=== PATIENT | male | born 1985 | race Caucasian/White ===

== ENCOUNTER 2024-06-30 15:50 | Emergency (ER) | payer MEDICAID, SELFPAY ==
[2024-06-30 16:07] VITALS: BP 151/91; PULSE 87; RESP 18; TEMP 36.3; O2SAT 96; BMI 40.7
--- NOTE | 2024-06-30 16:57 | CRLHL7_ITS ---
For Patients: As a result of the Century Cures Act, medical imaging exams and procedure reports are released immediately into your electronic medical record. You may view this report before your referring provider. If you have questions, please contact your health care provider. INDICATION: Diffuse abdominal pain, worse in the upper abdomen TECHNIQUE: CT Abdomen and pelvis with i.v. contrast. Coronal and sagittal reformats were obtained. CONTRAST: 143 mL Isovue 370 COMPARISON: None FINDINGS: Lower chest: Unremarkable. Liver: Unremarkable. Spleen: Unremarkable. Pancreas: Unremarkable. Gallbladder: Previous cholecystectomy noted with no significant intra- or extrahepatic biliary ductal dilatation seen. Kidney: Unremarkable. No kidney or ureteral stones or obstruction seen. Adrenal: Unremarkable. Bowel: Moderate wall thickening and submucosal fat deposition is present from the cecum to the proximal transverse colon. The appendix is normal in appearance and size. Vascular: Unremarkable. Lymph: Enlarged lymph nodes are present in the ileocolic region and along the right colon measuring up to 11 mm. Peritoneum: Unremarkable. No pneumoperitoneum is seen. No significant ascites is noted. Pelvis: Unremarkable. Soft tissue: Unremarkable. Bone: Unremarkable for age. IMPRESSIONS: 1. Moderate wall thickening and submucosal fat deposition is present from the cecum to the proximal transverse colon. This can be due to chronic inflammation from inflammatory bowel disease, metabolic syndrome, lymphangiectasia, or prior chemotherapy. 2. Enlarged lymph nodes are present in the ileocolic region and along the right colon measuring up to 11 mm. These may be reactive but imaging follow-up is recommended to document stability or resolution. Dictated by Scott Mckeon MD @ 06/30/2024 7:18:34 PM Please note that all CT scans at this facility use dose modulation, iterative reconstruction, and/or weight-based dosing when appropriate to reduce radiation dose to as low as reasonably achievable. Dictated by: Scott Mckeon MD @ 06/30/2024 19:18:59 (Electronically Signed)
--- NOTE | 2024-06-30 17:06 | ED_ITS ---
HPI - Nausea/Vomiting/Diarrhea General Date Seen: 06/30/24 Chief complaint: Diarrhea Stated complaint: Diarrhea, abdominal pain Time Seen by Provider: 06/30/24 16:11 Source: patient Mode of arrival: ambulatory Limitations: no limitations History of Present Illness HPI Narrative: Patient is a 39-year-old male presenting to the emergency department for abdominal discomfort. He states for the past 4 days he has been having nausea, diarrhea and lightheadedness. States he has also been having some upper abdominal cramping that is worse in the upper abdomen but does have discomfort throat his abdomen. Will have occasional hot and cold spells. Has also noticed melena. Has had the symptoms once a month for anywhere from 3-7 days over the past 3 months. States the symptoms seem slightly worse than previously but not too much different. Has been taking ibuprofen for his headache also she states seems to make his abdominal symptoms slightly worse. Has had a previous colonoscopy for GI issues a couple years ago that showed no abnormalities. He does states he has previously been told he could possibly have stomach ulcers. 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 Does state he gets stressed out easily and has recently started a new job. Has not been able see primary care provider because he did not have insurance. Has some mild lower chest pain but denies any shortness of breath. Has state he has been incontinent of stool and has been diarrhea in appearance. He has tried to give a stool culture. Denies any recent travel or camping trips. Symptoms seem to come on randomly during each recurrence of the past few months. Does state he has been having decreased oral intake but has been trying to drink plenty of fluids. Related Data Previous Rx's ?Medication ?Instructions ?Recorded omeprazole 40 mg capsule,delayed 40 mg PO DAILY #30 caps 06/30/24 release ondansetron 4 mg disintegrating 4 mg PO Q6H #20 tabs 06/30/24 tablet Allergies Allergy/AdvReac Type Severity Reaction Status Date / Time No Known Drug Allergies Allergy Verified 06/30/24 18:48 Review of Systems Status of ROS: Reports: 10 or more systems reviewed and unremarkable except as noted in History and below PFSH PFSH Social History Smoking Status: Former smoker What tobacco products do you use: cigarettes Do you use any of these nicotine containing products: Vaping Products How often do you have a drink containing alcohol: never AUDIT-C Alcohol total score: 0 Non-prescribed substance use: denies use Exam Narrative: Exam Narrative: Const: Well-nourished, Well-developed, in mild distress Eyes: PERRL, no conjunctival injection, and symmetrical lids HENT: Atraumatic external nose and ears. Moist mucous membranes. Neck: Symmetric, trachea midline, No thyromegaly. CVS: RRR, No murmurs or gallops. Peripheral pulses 2+ and equal in all extremities RESP: Unlabored respiratory effort. Clear to auscultation bilaterally. GI: Diffuse mild abdominal tenderness worse in the upper abdomen, Nondistended, No rebound or guarding. MSK:Extremities w/o deformity, Normal Active ROM Skin: Warm, Dry. No rashes or lesions. Neuro: Normal Muscle tone, No focal neurological deficits. Psych: Awake, Alert, & Oriented x3. Appropriate mood and affect. Const: Vital Signs, click to edit/add: Vital Signs - 24 hr 06/30/24 16:07 06/30/24 18:26 Temperature 97.3 F L 98.8 F Pulse Rate [Pulse Oximeter] 87 71 Respiratory Rate 18 18 Blood Pressure [Ri t Upper Arm] 151/91 H 138/85 Pulse Oximetry 96 94 Oxygen Delivery Me thod Room Air Room Air Course Vital Signs Vital signs: Initial Vital Signs Temperature 97.3 F L 06/30/24 16:07 Temperature Source Oral 06/30/24 16:07 Pulse Rate 87 06/30/24 16:07 Respiratory Rate 18 06/30/24 16:07 Blood Pressure 151/91 H 06/30/24 16:07 Blood Pressure Mean 111 H 06/30/24 16:07 Pulse Oximetry 96 06/30/24 16:07 Oxygen Delivery Method Room Air 06/30/24 16:07 Vital Signs Temperature 97.3 F L 06/30/24 16:07 Pulse Rate 87 06/30/24 16:07 Respiratory Rate 18 06/30/24 16:07 Blood Pressure 151/91 H 06/30/24 16:07 Pulse Oximetry 96 06/30/24 16:07 Oxygen Delivery Method Room Air 06/30/24 16:07 Temperature 98.8 F 06/30/24 18:26 Pulse Rate 71 06/30/24 18:26 Respiratory Rate 18 06/30/24 18:26 Blood Pressure 138/85 06/30/24 18:26 Pulse Oximetry 94 06/30/24 18:26 Oxygen Delivery Method Room Air 06/30/24 18:26 Medications Administered Medications: Discontinued Medications Generic Name Dose Route Start Last Admin Trade Name Precious PRN Reason Stop Dose Admin Lactated Ringer's 1,000 mls @ 1,000 mls/hr 06/30/24 16:57 06/30/24 18:20 Lactated Ringers 1000 Ml IV 06/30/24 17:56 1,000 mls/hr .Q1H ONE Administration Lidocaine/Aluminum/Magnesium/Simeth 30 ml 06/30/24 16:57 06/30/24 18:18 Gi Cocktail (Visc Lido/Antacid) 30 Ml PO 06/30/24 16:58 30 ml ONCE ONE Administration Ondansetron HCl 4 mg 06/30/24 16:57 06/30/24 18:22 Ondansetron 2 Mg/Ml Inj IVP 06/30/24 16:58 4 mg ONCE ONE Administration MDM - Nausea/Vomiting/Diarrhea MDM Narrative Medical decision making narrative: Patient is a 39-year-old male presenting to the emergency department for abdominal complaints. Differential is quite broad at this time. Differential includes gastroenteritis, colitis, peptic ulcer disease, pancreatitis, gallbladder liver disease. Seems less likely to be appendicitis or diverticulitis. He is also having some mild chest pain that seems more related to his abdominal discomfort by will do an EKG and troponin. My concern for PE is low. Will order a CBC, CMP, COVID/flu/RSV, lipase. Will do CT scan of the abdomen pelvis with contrast. Zofran given for his nausea and given a L of fluids 1st dehydration. Also given a GI cocktail see what helps the symptoms. Patient's lab work returned showing no concerning abnormalities. EKG shows no concerning abnormalities. Was difficulty getting V6 to stay on and just did not get an adequate EKG to evaluate V6. Rest of his EKG looks fine I believe his symptoms are more abdominal related. Considering like the symptoms I do not believe repeat troponin is necessary. He is feeling much better after the GI cocktail and Zofran. Is unsure what helped more. CT scan returned showing some moderate wall thickening and submucosal fat deposition from the cecum to the proximal transverse colon. Differential for this is pretty broad but includes inflammatory bowel disease, metabolic syndrome. Does state he had a normal colonoscopy within the past 2 years. I did inform him he needs to set up primary care to schedule a colonoscopy and possible endoscopy to. I still think it is possible he could be having a peptic ulcer. Patient will be discharged with a a PPI, Zofran. Him is are agreeable to this plan. Lab Data Labs: Lab Results 06/30/24 06/30/24 06/30/24 Range/Units 17:30 17:46 18:00 WBC 8.63 (4.50-11.00) K/uL RBC 5.53 (4.30-5.90) m/uL Hgb 15.5 (13.5-17.5) gm/dL Hct 44.7 (37.0-53.0) % MCV 81 (80-100) fL MCH 28 (26-34) pg MCHC 35 (32-36) gm/dL RDW Coeff of Halle 12.3 (11.5-15.5) % Plt Count 244 (140-440) K/uL Neut % (Auto) 53.9 (42.0-72.0) % Lymph % (Auto) 26.9 (20-44) % Hyde % (Auto) 12.5 H (0.0-11.0) % Eos % (Auto) 5.6 (0.0-7.0) % Baso % (Auto) 0.5 (0.0-3.0) % Neut # (Auto) 4.66 (1.7-7.0) K/uL Lymph # (Auto) 2.32 (0.90-2.90) K/uL Hyde # (Auto) 1.10 H (0.00-0.90) K/UL Eos # (Auto) 0.48 (0.00-0.50) K/uL Baso # (Auto) 0.04 (0.00-0.30) K/uL Abs Immat Gran (auto) 0.05 (0.00-0.30) K/uL Imm/Tot Granulo (auto) 0.6 % Sodium 139 (135-149) mmol/L Potassium 3.5 L (3.6-5.1) mmol/L Chloride 100 (96-114) mmol/L Carbon Dioxide 27 (20-32) mmol/L Anion Gap 12 (7-15) mEq/L BUN 15 (5-24) mg/dL Creatinine 0.7 (0.5-1.5) mg/dL Estimated Creat Clear 152.39 Estimated GFR 121 ml/min Glucose 89 (60-115) mg/dL Calcium 9.7 (8.4-10.6) mg/dL Total Bilirubin 0.6 (0.1-1.5) mg/dL AST 38 H (12-35) U/L ALT 42 (4-50) U/L Alkaline Phosphatase 79 (40-150) U/L Troponin I < 0.01 (0.01-0.04) ng/mL Total Protein 8.1 (6.0-8.3) g/dL Albumin 4.7 (3.3-5.0) g/dL Lipase 81 (23-300) U/L SARS-CoV-2 (PCR) Negative SARS-CoV-2 (Negative) Influenza Type A (PCR) Negative PCR FLU A (Negative) Influenza Type B (PCR) Negative PCR FLU B (Negative) RSV (PCR) Negative PCR RSV (Negative) Imaging Data CT scan abdomen and pelvis: Attestation: I have reviewed the pertinent imaging results. Radiologist's impression: 1. Moderate wall thickening and submucosal fat deposition is present from the cecum to the proximal transverse colon. This can be due to chronic inflammation from inflammatory bowel disease, metabolic syndrome, lymphangiectasia, or prior chemotherapy. 2. Enlarged lymph nodes are present in the ileocolic region and along the right colon measuring up to 11 mm. These may be reactive but imaging follow-up is recommended to document stability or resolution. Dictated by Scott Mckeon MD @ 06/30/2024 7:18:34 PM Please note that all CT scans at this facility use dose modulation, iterative reconstruction, and/or weight-based dosing when appropriate to reduce radiation dose to as low as reasonably achievable. Dictated by: Scott Mckeon MD @ 06/30/2024 19:18:59 ECG Data Attestation: I personally reviewed and interpreted this ECG as follows: Prior ECG tracings: not available for review Interpretation: Normal sinus rhythm with a rate 69 beats per minute, normal intervals, normal axis, no ST or T-wave abnormalities. Did not get adequate lead placement for V6 Discharge Plan Discharge Clinical Impression: Abdominal pain Qualifiers: Abdominal location: unspecified location Qualified Code(s): R10.9 - Unspecified abdominal pain Patient Disposition: Home, Self-Care Condition: Improved Instructions: Peptic Ulcer (ED) Additional Instructions: I believe you may have a peptic ulcer. For this I recommend you stop taking NSAIDs. You can continue take Tylenol. Take the antacid medication as I prescribed along with the Zofran as needed. Is also very important that you set up primary care as soon as you can to set up a outpatient colonoscopy. There is some inflammation seen in your colon. Cannot say exactly where it is at this time while I do believe the colonoscopy would be beneficial for diagnosis. You also may benefit from endoscopy Prescriptions: New ondansetron 4 mg tablet,disintegrating 4 mg PO Q6H Qty: 20 0RF omeprazole 40 mg capsule,delayed release(DR/EC) 40 mg PO DAILY Qty: 30 0RF Follow Up/Referrals: Provider,Not a Local [Primary Care Provider] - Stand Alone Forms: [employer] Info Instructions
--- OUTSIDE RECORDS SUMMARY | 2024-06-30 17:44 | XMS_ITS | Continuity of Care Document ---
Author Organization [facility] Address [address] [place] [address] Care Team Providers Care [employer] Equipment Mechanic Name Role Phone Juan David Sam Unavailable Unavailable Advance Directives Directive Yes / No Effective Date File Name No Information Encounters Encounter Description Practice Location Reason(s) For Visit Diagnoses Date Provider Providers Copied on Encounter [facility] , [address] [place], [place], [phone], [facility] No Information [address] . Family History Family Member Type Diagnosis Age At Onset No Information Payers Payer name Insurance type Covered green party ID Authoriza tion(s) No Information Social History Type Description Quantity Date Captured Comments Sex Male Smoking Status No Information Chief Complaint And Reason For Visit No Information Reason For Referral Reason For Referral No Information History Of Present Illness Encounter Date Complaint History Of Prese nt Illness No Information Functional Status Date Functional Assessmen t No Information Instructions Date Instruction Additional Infor mation No Information Assessments Type Assessment Date No Information Patient Care Teams Name Effective Dates (start - stop) Status Members No Information
[2024-06-30] MEDS: GI COCKTAIL (VISC LIDO/ANTACID) 30 ML PO (18:18)
[2024-06-30] MEDS: LACTATED RINGERS 1000 ML 1,000 ML IV (18:20)
[2024-06-30] MEDS: ONDANSETRON 2 MG/ML inj 4 MG IVP (18:22)
[2024-06-30 18:25] LABS: PCR FLU A Negative PCR FLU A (Negative); PCR FLU B Negative PCR FLU B (Negative); PCR RSV Negative PCR RSV (Negative); SARS PCR* Negative SARS-CoV-2 (Negative)
[2024-06-30 18:26] VITALS: BP 138/85; PULSE 71; RESP 18; TEMP 37.1; O2SAT 94
[2024-06-30 18:31] LABS: Albumin* 4.7 g/dL (3.3-5.0); Chloride* 100 mmol/L (96-114); Potassium* 3.5 mmol/L (3.6-5.1); Sodium* 139 mmol/L (135-149)
[2024-06-30 18:34] LABS: Alanine Aminotransferase* 42 U/L (4-50); Alkaline Phosphatase* 79 U/L (40-150); Anion Gap 12 mEq/L (7-15); Aspartate Amino Transferase* 38 U/L (12-35); Bilirubin Total* 0.6 mg/dL (0.1-1.5); Blood Urea Nitrogen* 15 mg/dL (5-24); Calcium* 9.7 mg/dL (8.4-10.6); Carbon Dioxide* 27 mmol/L (20-32); Creatinine* 0.7 mg/dL (0.5-1.5); Est. Creatinine Clearance* 152.39; Estimated Glomerular Filt Rate 121 ml/min; Glucose* 89 mg/dL (60-115); Lipase* 81 U/L (23-300); Total Protein* 8.1 g/dL (6.0-8.3)
[2024-06-30 18:39] LABS: Basophils Absolute Auto 0.04 K/uL (0.00-0.30); Basophils Percent Auto 0.5 % (0.0-3.0); Eosinophils Absolute Auto 0.48 K/uL (0.00-0.50); Eosinophils Percent Auto 5.6 % (0.0-7.0); Hematocrit 44.7 % (37.0-53.0); Hemoglobin* 15.5 gm/dL (13.5-17.5); Immature Granulocytes Abs Auto 0.05 K/uL (0.00-0.30); Immature Granulocytes Pct Auto 0.6 %; Lymphocytes Absolute Auto 2.32 K/uL (0.90-2.90); Lymphocytes Percent Auto 26.9 % (20-44); Mean Corpuscular HGB Conc 35 gm/dL (32-36); Mean Corpuscular Hemoglobin 28 pg (26-34); Mean Corpuscular Volume 81 fL (80-100); Monocytes Percent Auto 12.5 % (0.0-11.0); Neutrophils Absolute Auto 4.66 K/uL (1.7-7.0); Neutrophils Percent Auto 53.9 % (42.0-72.0); Platelet Count* 244 K/uL (140-440); RDW Coefficient of Variation % 12.3 % (11.5-15.5); Red Blood Count 5.53 m/uL (4.30-5.90); White Blood Count* 8.63 K/uL (4.50-11.00)
[2024-06-30 18:42] LABS: Slide Review Reflex No
[2024-06-30 18:53] LABS: Troponin I* < 0.01 ng/mL (0.01-0.04)
== END 2024-06-30 20:00 | disposition home or self-care (01) ==
PROVIDERS: Emergency Provider Student in an Organized Health Care Education/Training Program
DX: R10.9 Unspecified abdominal pain (principal)
CPT/HCPCS: 36415; 74177; 80053; 83690; 84484; 85025; 87631; 93005; 99284; 99285; A9270; J2405; J7120; Q9967